=== PATIENT | female | born 1990 | race Caucasian/White ===

== ENCOUNTER 2019-03-13 17:19 | Inpatient (IN) ==
[2019-03-13] MEDS ORDERED: PEPCID PO PRN (17:26)
[2019-03-13] MEDS ORDERED: TYLENOL PO PRN (17:26)
[2019-03-13] MEDS ORDERED: AMBIEN PO PRN (17:26)
[2019-03-13] MEDS ORDERED: ZOFRAN IV PRN (17:26)
[2019-03-13] MEDS ORDERED: BRETHINE SUBQ PRN (17:26)
[2019-03-13] MEDS ORDERED: PEPCID IV PRN (17:26)
[2019-03-13] MEDS ORDERED: REGLAN PO ONE (17:26)
[2019-03-13] MEDS ORDERED: STADOL IV PRN ×3 (17:26)
[2019-03-13] MEDS ORDERED: KEFZOL 1 GM/D5W 1 GM/50 ML IVPB IV PRN (17:26)
[2019-03-13] MEDS ORDERED: PEPCID PO ONE (17:26)
[2019-03-13 18:15] LABS: URINE SOURCE VOIDED
[2019-03-13 18:17] LABS: BASO# 0.02 X1000 (0.0-0.2); BASO% 0.2 % (0.0-0.8); EOS# 0.24 X1000 (0.0-0.7); EOS% 2.3 % (0.0-10.0); HEMATOCRIT 29.5 % (37.0-47.0); HEMOGLOBIN 9.6 g/dL (12.0-16.0); IMM GRAN# 0.02 X1000 (0.0-0.04); IMM GRAN% 0.2 % (0.0-0.5); LYMPH# 3.11 X1000 (1.2-3.4); LYMPH% 30.3 % (20.5-51.1); MCH 25.9 PG (27-31); MCHC 32.5 g/dL (33-37); MCV 79.5 FL (81-99); MONO# 0.88 X1000 (0.11-0.59); MONO% 8.6 % (1.7-9.3); MPV 10.2 FL (7.4-10.4); NEUT# 5.99 X1000 (1.4-6.5); NEUT% 58.4 % (42.2-75.2); PLT 402 X1000 (130-400); RBC 3.71 XMIL (4.2-5.4); RDW 15.3 % (11.5-14.5); WBC 10.26 X1000 (4.8-10.8)
[2019-03-13 18:19] LABS: BILIRUBIN URINE NEGATIVE (NEGATIVE); BLOOD URINE NEGATIVE (NEGATIVE); GLUCOSE URINE NEGATIVE (NEGATIVE); KETONE URINE NEGATIVE (NEGATIVE); LEUKOCYTES URINE TRACE (NEGATIVE); NITRITE URINE NEGATIVE (NEGATIVE); PROTEIN URINE NEGATIVE (NEGATIVE); UROBILINOGEN URINE NORMAL
[2019-03-13 18:20] LABS: CLARITY VERY CLOUDY (CLEAR); COLOR YELLOW
[2019-03-13 18:29] LABS: UR AMPHETAMINES QUAL NONE DETECTED (NONE DETECT); UR BARBITUATES QUAL NONE DETECTED (NONE DETECT); UR BENZODIAZEPIN QUAL NONE DETECTED (NONE DETECT); UR CANNABINOIDS QUAL NONE DETECTED (NONE DETECT); UR COCAINE QUAL NONE DETECTED (NONE DETECT); UR METHADONE QUAL NONE DETECTED (NONE DETECT); UR METHAMPHETAMINE QUAL NONE DETECTED (NONE DETECT); UR OPIATES QUAL NONE DETECTED (NONE DETECT); UR OXYCODONE QUAL NONE DETECTED (NONE DETECT); UR PCP QUAL NONE DETECTED (NONE DETECT); UR PROPOXYPHENE QUAL NONE DETECTED (NONE DETECT); UR TCA QUAL NONE DETECTED (NONE DETECT)
[2019-03-13] MEDS: CYTOTEC PO SCH (20:04)
[2019-03-13] MEDS: LR 1,000 ML IV ONE (20:04)
--- NOTE | 2019-03-13 20:59 | HISTORY AND PHYSICAL ---
HISTORY OF PRESENT ILLNESS: Patient is a 29-year-old white female, G4, P3, at 39 weeks gestation, who is being admitted to Labor and Delivery for cervical ripening with Cytotec, and then Pitocin induction on 03/14/2019. care unremarkable. Group B strep was negative and patient being treated with iron for anemia. PAST MEDICAL HISTORY: Unremarkable. PAST SURGICAL HISTORY: Ear surgery. PAST OB HISTORY: G4, P3, spontaneous vaginal deliveries x3. 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 REVIEW OF SYSTEMS: All systems reviewed and noncontributory. FAMILY HISTORY: Significant for diabetes mellitus and colon cancer. SOCIAL HISTORY: Tobacco use: Half pack per day. Alcohol use: None. MEDICATIONS: vitamins and iron. ALLERGIES: No known drug allergies. PHYSICAL EXAMINATION: VITAL SIGNS: Height 5 feet 11 inches, weight 186 pounds, temperature 97 degrees, blood pressure 112/65, pulse 99, respirations 20. heart rate in the 140s with positive accelerations. HEENT: Pupils equal, round, reactive to light and accommodation. Extraocular movements intact. Oropharynx clear. NECK: Supple. No thyromegaly. LUNGS: Clear to auscultation. HEART: Regular rate and rhythm. ABDOMEN: Gravid, nontender. PELVIC: Cervix was fingertip, thick, and high, posterior. EXTREMITIES: No clubbing, cyanosis, or edema noted. NEUROLOGIC: Cranial nerves 2 through 12 grossly intact. Motor 5/5. Ultrasound was used to confirm a vertex presentation. ASSESSMENT AND PLAN: Intrauterine at 39 weeks, admitted for cervical ripening and then induction of labor. Anticipate vaginal delivery. cc: Gonzalo García III, MD
[2019-03-14] MEDS ORDERED: LR 1,000 ML ONE ×2 (00:01→06:03)
[2019-03-14] MEDS: LR 1,000 ML IV ONE (00:04)
[2019-03-14] MEDS: CYTOTEC PO SCH ×2 (00:05→04:15)
[2019-03-14] MEDS ORDERED: FENTANYL-BUPIV-NS 2 MCG-0.1% 200 ML EPIDURAL PRN (07:05)
[2019-03-14] MEDS ORDERED: NAROPIN 0.2% INJ PRN (07:06)
[2019-03-14] MEDS ORDERED: EPHEDRINE ONE (07:57)
[2019-03-14] MEDS ORDERED: PITOCIN 30 UNITS/NS 30 UNIT/500 ML IV.SOLN IV SCH (08:00)
[2019-03-14] MEDS ORDERED: EPHEDRINE IV PRN (08:00)
[2019-03-14] MEDS: LR 1,000 ML IV SCH ×2 (08:49→08:51)
[2019-03-14] MEDS ORDERED: BICITRA PO ONE (14:14)
[2019-03-14] MEDS ORDERED: NESACAINE-MPF 3% INJ ONE (14:17)
[2019-03-14] MEDS ORDERED: ZOFRAN ONE (14:57)
[2019-03-14] MEDS ORDERED: NAROPIN 0.5% ONE (14:57)
[2019-03-14] MEDS ORDERED: DURAMORPH ONE (15:00)
[2019-03-14] MEDS ORDERED: FENTANYL ONE ×2 (15:00→15:48)
[2019-03-14] MEDS ORDERED: PITOCIN ONE (15:50)
[2019-03-14] MEDS ORDERED: NEO-SYNEPHRINE ONE (15:53)
[2019-03-14] MEDS ORDERED: TORADOL ONE (16:05)
[2019-03-14] MEDS ORDERED: DEMEROL PO PRN ×2 (16:06)
[2019-03-14] MEDS ORDERED: DULCOLAX PR PRN (16:06)
[2019-03-14] MEDS ORDERED: M-M-R II VACCINE SUBQ ONE (16:06)
[2019-03-14] MEDS ORDERED: PITOCIN 20 UNITS/NS 20 UNITS/1,000 ML IV.SOLN IV ONE (16:06)
[2019-03-14] MEDS ORDERED: ATARAX PO PRN (16:06)
[2019-03-14] MEDS ORDERED: DEMEROL IM PRN (16:06)
[2019-03-14] MEDS ORDERED: AMBIEN PO PRN (16:06)
[2019-03-14] MEDS ORDERED: PITOCIN IM PRN (16:06)
[2019-03-14] MEDS ORDERED: HYDROXYZINE IM PRN (16:06)
[2019-03-14] MEDS ORDERED: BOOSTRIX VACCINE IM ONE (16:06)
[2019-03-14] MEDS ORDERED: PERCOCET-5 PO PRN (16:06)
[2019-03-14] MEDS ORDERED: PHENERGAN IM PRN (16:06)
[2019-03-14] MEDS ORDERED: MYLICON PO PRN (16:06)
[2019-03-14] MEDS: MORPHINE IV PRN ×2 (17:12→22:01)
--- NOTE | 2019-03-14 18:10 | OPERATIVE NOTE ---
PROCEDURE DATE: 03/14/2019 PREOPERATIVE DIAGNOSIS: Intrauterine (IUP) at 39 and 1/7 weeks with persistent OP presentation, maternal exhaustion, and non-engaged mid and vertex. Also, patient desires permanent sterilization. POSTOPERATIVE DIAGNOSES: 1. Intrauterine (IUP) at 39 and 1/7 weeks with persistent OP presentation, maternal exhaustion, and non-engaged mid and vertex. Also, patient desires permanent sterilization. 2. With operative delivery of a male , 8 pounds 10 ounces with Apgars of 8 and 9 at 15:08 on 03/14/2019. PROCEDURE PERFORMED: Primary low transverse and bilateral tubal ligation. SURGEON: Dr. García. MANAGER PHYSICAL: ORT. ANESTHESIA: Epidural, Dr. Hendrickson. FINDINGS: Normal-appearing uterus, tubes and ovaries. OP presentation noted at time of delivery. COMPLICATIONS: None. ESTIMATED BLOOD LOSS: 700 mL. SPECIMEN: Removed right and left fallopian tube segments. DRAINS: Bazan to straight drain. COUNTS: All counts were correct x 3. INDICATIONS: Patient is a 29-year-old, white female, G4, P3, at 39 and 1/7 weeks, for labor induction. The patient had Cytotec the night before and had Pitocin, progressed to complete; however, after pushing for a period of time the patient was complaining of pain and exhaustion and check of the presentation, showed OP presentation and that the fetus was not engaged despite the pushing of the mother. Due to these factors, discussed with the patient about moving towards operative delivery. The patient expressed desire for this as well as for tubal ligation. Patient counseled about the risks of surgery including bleeding, infection, bowel or bladder injury. The patient counseled about the permanency of tubal ligation, failure rate of 2 to 01/1000, as well as the availability of reversible alternatives such as IUD, control pills, patches, etc. DETAILS OF PROCEDURE: The patient was taken to the OR. Epidural was re-dosed and adequate anesthesia was noted by using Allis clamps on skin. Then, Allis clamps on skin showed good anesthesia. A Bazan catheter had been placed and there was tinge of hematuria noted after the maternal pushing effort. A Pfannenstiel skin incision was made using a scalpel. This was taken down sharply to the fascia layer. A small villa was made in the rectus fascia. Fascial incision was then extended using curved Cope scissors and then blunt and sharp dissection of the superior and inferior aspects of the rectus fascia was performed. Rectus muscles were then divided in midline. Peritoneal layer was entered bluntly. The peritoneal incision was extended superiorly and inferiorly with care taken to avoid the bladder. Bladder reflection was then dissected using Metzenbaum scissors. Bladder blade was placed at the abdominal cavity and then a transverse incision was made in lower uterine segment using scalpel. Clear fluid was noted upon entry and then elevated the head toward the hysterotomy site where OP presentation was confirmed and then the head was delivered atraumatically with gentle fundal pressure. Bulb suction of nose and mouth and then the rest of the body was delivered atraumatically with gentle fundal pressure. The umbilical cord was clamped twice and cut. Infant handed to nursery nurse in attendance for delivery. Cord blood sample was obtained at this time. Placenta was then manually extracted. Uterus was exteriorized. Wet lap was placed around the uterus to dry. It was then used to curette the uterine cavity, clots and debris. Uterine incision was then closed using 0 chromic in a running, locking fashion x 1 and a small area of extra suture was made on the left corner and this was made hemostatic with several [id number] stitches. Once the uterine incision was inspected and good hemostasis was noted, attention was then turned to the right fallopian tube which was grasped near the isthmus by a Leanne clamp and then electrocautery was used to puncture the mesosalpinx and then 0 plain suture was then used to tie a portion of the fallopian tube. This portion was then excised using Metzenbaum scissors and the electrocautery was then used on the open ends of the fallopian tube. Good hemostasis was noted. The specimen was taken off to be placed in a specimen container. Attention was then turned to the left fallopian tube, which was grasped near the isthmus and then a small hole was made in the mesosalpinx using electrocautery. A portion of the fallopian tube was then ligated using 0 plain suture and then this portion was then excised using Metzenbaum scissors and the left fallopian tube segment was handed off to be placed in a specimen container. The posterior cul-de-sac was then irrigated copiously and then the uterus was then replaced back into the abdominal cavity without difficulty. Pericolic gutters were then cleansed using moist lap sponges. The uterine incision and bladder reflection were inspected and good hemostasis was noted. At this point in time, peritoneal layer was then closed using 2-0 chromic in a running fashion x 1. The rectus muscle was then reapproximated using several interrupted stitches of 2-0 chromic. Fascia layer was then closed using 0 PDS in a running fashion x 1. Subcutaneous layer was then irrigated and electrocautery was used to obtain hemostasis. The skin was reapproximated using esteban. The patient tolerated the procedure well. Was taken to recovery room in stable condition. All counts were correct x 3. cc: Gonzalo García III, MD
[2019-03-14] MEDS: TORADOL IV SCH ×2 (18:54→22:02)
[2019-03-14] MEDS: MYLICON PO SCH ×2 (18:56→22:00)
[2019-03-14] MEDS: PERICOLACE PO SCH (22:00)
[2019-03-14] MEDS: PITOCIN 10 UNITS/NS 1,000 ML IV SCH (23:30)
[2019-03-15] MEDS: MORPHINE IV PRN ×2 (01:35→07:26)
[2019-03-15 07:19] LABS: BASO# 0.05 X1000 (0.0-0.2); BASO% 0.2 % (0.0-0.8); EOS# 0.17 X1000 (0.0-0.7); EOS% 0.8 % (0.0-10.0); HEMATOCRIT 27.3 % (37.0-47.0); HEMOGLOBIN 8.7 g/dL (12.0-16.0); IMM GRAN# 0.05 X1000 (0.0-0.04); IMM GRAN% 0.2 % (0.0-0.5); LYMPH# 3.37 X1000 (1.2-3.4); LYMPH% 15.3 % (20.5-51.1); MCH 25.7 PG (27-31); MCHC 31.9 g/dL (33-37); MCV 80.5 FL (81-99); MONO# 1.86 X1000 (0.11-0.59); MONO% 8.4 % (1.7-9.3); MPV 10.2 FL (7.4-10.4); NEUT# 16.55 X1000 (1.4-6.5); NEUT% 75.1 % (42.2-75.2); PLT 352 X1000 (130-400); RBC 3.39 XMIL (4.2-5.4); RDW 15.6 % (11.5-14.5); WBC 22.05 X1000 (4.8-10.8)
[2019-03-15 07:40] LABS: BASO 1 % (0-1); EOS 1 % (1-10); HYPOCHROM 1+; LYMPHS 11 % (21-51); MICROCYTOSIS 1+; MONO 4 % (1-9); SEGS 83 % (42-75)
[2019-03-15] MEDS: PITOCIN 10 UNITS/NS 1,000 ML IV SCH (07:54)
[2019-03-15] MEDS: TORADOL IV SCH (09:58)
[2019-03-15] MEDS: MYLICON PO SCH ×3 (09:58→17:45)
--- NOTE | 2019-03-15 10:46 | OB/GYN PROGRESS NOTE ---
Progress Note OB - . Patient Problems: Current Active Problems Problem Status Onset Deep transverse arrest, persis occipitopost position, labor and del Acute Anemia complicating Acute OB Progress Note: Vital Signs - 24 hr 03/14/19 13:15 03/14/19 16:00 03/14/19 16:10 Temperature 96.9 F L 96.7 F L Pulse Rate 104 H 96 H 97 H Respiratory Rate 20 16 16 Blood Pressure 101/62 103/61 Blood Pressure [Left Arm] 103/61 100/55 O2 Sat by Pulse Oximetry 99 100 100 03/14/19 16:20 03/14/19 16:30 03/14/19 16:40 Temperature Pulse Rate 96 H 65 76 Respiratory Rate 16 16 16 Blood Pressure Blood Pressure [Left Arm] 105/55 97/57 102/60 O2 Sat by Pulse Oximetry 100 98 100 03/14/19 16:50 03/14/19 17:00 03/14/19 20:30 Temperature 96.7 F L Pulse Rate 71 69 66 Respiratory Rate 16 16 18 Blood Pressure 117/56 112/64 Blood Pressure [Left Arm] 110/55 117/56 O2 Sat by Pulse Oximetry 98 99 99 03/15/19 00:00 03/15/19 04:16 03/15/19 07:48 Temperature 96.5 F L 97.1 F L Pulse Rate 55 L 68 81 Respiratory Rate 18 18 16 Blood Pressure 97/51 106/51 105/58 Blood Pressure [Left Arm] O2 Sat by Pulse Oximetry 98 98 100 03/15/19 09:12 Temperature Pulse Rate 78 Respiratory Rate 18 Blood Pressure Blood Pressure [Left Arm] O2 Sat by Pulse Oximetry Laboratory Results - last 24 hr 03/15/19 06:35 WBC 22.05 H D RBC 3.39 L Hgb 8.7 L Hct 27.3 L MCV 80.5 L MCH 25.7 L MCHC 31.9 L RDW Std Deviation 15.6 H Plt Count 352 MPV 10.2 Immature Gran % (Auto) 0.2 Neut % (Auto) 75.1 Lymph % (Auto) 15.3 L [place] % (Auto) 8.4 Eos % (Auto) 0.8 Baso % (Auto) 0.2 Immature Gran # (Auto) 0.05 H Neut # (Auto) 16.55 H Lymph # (Auto) 3.37 [place] # (Auto) 1.86 H Eos # (Auto) 0.17 Baso # (Auto) 0.05 Segmented Neutrophils 83 H Lymphocytes 11 L Monocytes 4 Eosinophils 1 Basophils 1 Hypochromia 1+ Microcytosis 1+ Doing well POD#1 PLTCS due to labor arrest in second stage with persistent OP. She notes good response to analgesia, particularly Toradol, and denies NVFC, heavy lochia, or breast pain EXAM VSS AF as above HEENT Nl Chest Nl respiratory effort with incentive spirometry CVS RRR Abdomen benign. Fundus u-2, appropriately tender Ext no CCE or tenderness A/P Problems as listed above Postop and care reviewed including ambulation, Bazan removal, av oidance of tobacco, care with showering, iron supplementation, and discharge by 6-14
[2019-03-15] MEDS: PERCOCET-10 PO PRN ×2 (13:44→19:44)
[2019-03-15] MEDS ORDERED: LR 1,000 ML IV SCH (16:06)
[2019-03-15] MEDS: MOTRIN PO PRN (17:45)
[2019-03-15] MEDS: PERICOLACE PO SCH (23:13)
[2019-03-16] MEDS: MOTRIN PO PRN ×3 (02:47→20:17)
[2019-03-16] MEDS: PERCOCET-10 PO PRN ×5 (02:48→20:17)
--- NOTE | 2019-03-16 06:41 | OB/GYN PROGRESS NOTE ---
Progress Note OB - . Patient Problems: Current Active Problems Problem Status Onset Anemia complicating Acute Deep transverse arrest, persis occipitopost position, labor and del Acute OB Progress Note: Vital Signs - 24 hr 03/15/19 07:48 03/15/19 09:12 03/15/19 12:00 Temperature 97.1 F L 96.2 F L Pulse Rate 81 78 72 Respiratory Rate 16 18 20 Blood Pressure 105/58 96/52 O2 Sat by Pulse Oximetry 100 100 03/15/19 15:58 03/15/19 20:00 03/15/19 20:20 Temperature 97.3 F L 97.2 F L Pulse Rate 99 H 98 H 99 H Respiratory Rate 20 18 20 Blood Pressure 102/59 123/55 O2 Sat by Pulse Oximetry 99 03/16/19 00:00 03/16/19 05:34 Temperature 97.7 F 95.5 F L Pulse Rate 73 68 Respiratory Rate 18 14 Blood Pressure 98/53 91/48 O2 Sat by Pulse Oximetry 100 Laboratory Results - last 24 hr 03/15/19 06:35 WBC 22.05 H D RBC 3.39 L Hgb 8.7 L Hct 27.3 L MCV 80.5 L MCH 25.7 L MCHC 31.9 L RDW Std Deviation 15.6 H Plt Count 352 MPV 10.2 Immature Gran % (Auto) 0.2 Neut % (Auto) 75.1 Lymph % (Auto) 15.3 L [place] % (Auto) 8.4 Eos % (Auto) 0.8 Baso % (Auto) 0.2 Immature Gran # (Auto) 0.05 H Neut # (Auto) 16.55 H Lymph # (Auto) 3.37 [place] # (Auto) 1.86 H Eos # (Auto) 0.17 Baso # (Auto) 0.05 Segmented Neutrophils 83 H Lymphocytes 11 L Monocytes 4 Eosinophils 1 Basophils 1 Hypochromia 1+ Microcytosis 1+ No complaints, pain controlled, denies PIH/Orthostatic symptoms. Ambulating A&O NAD CTAB RRR S/ND/appropriate post op discomfort Incision C/D/I without E/E/I No C/C/E POD 2 s/p primary LTCS doing well - ambulate - post op care - anticipate D/C home Wednesday.
[2019-03-16] MEDS: MYLICON PO SCH ×5 (11:39→20:17)
[2019-03-16] MEDS ORDERED: NEOSPORIN OINTMENT PACKET TOP PRN (15:09)
[2019-03-16] MEDS: PERICOLACE PO SCH (20:17)
[2019-03-17] MEDS: PERCOCET-10 PO PRN ×5 (00:47→21:26)
[2019-03-17] MEDS: MOTRIN PO PRN ×3 (07:06→23:33)
[2019-03-17] MEDS: MYLICON PO SCH ×4 (09:13→21:26)
--- NOTE | 2019-03-17 10:02 | OB/GYN PROGRESS NOTE ---
Progress Note OB - . Patient Problems: Current Active Problems Problem Status Onset Anemia complicating Acute Deep transverse arrest, persis occipitopost position, labor and del Acute OB Progress Note: Vital Signs - 24 hr 03/16/19 11:41 03/16/19 16:14 03/16/19 20:15 Temperature 96.9 F L 97.4 F L 98 F Pulse Rate 80 90 80 Respiratory Rate 18 18 18 Blood Pressure 100/55 109/57 111/66 O2 Sat by Pulse Oximetry 99 98 98 03/17/19 00:45 03/17/19 08:40 03/17/19 08:59 Temperature 96.6 F L 97.0 F L Pulse Rate 72 88 85 Respiratory Rate 16 16 16 Blood Pressure 93/52 129/60 O2 Sat by Pulse Oximetry 97 100 29 yo WF doing well on POD#3 following unscheduled PLTCS with arrest of labor and OP position. Her may require further impatient bili light treatment, and she is uncertain she can secure additional care for her three children tonight. Postop ROS is negative but for nontedner and decreasing pedal edema. Exam VSS AF Heent Nl Chest Nl resp effort CVS RRR Abd soft, fundus firm, nontender U-0 Ext nontender; 2+ pedal edema A/P as above POD#3 Discharge today or tomorrow pedning available childcare. I reviewed discharge precautions and limitations and need for assistance with childcare over the next two weeks regardless.
[2019-03-17] MEDS: PERICOLACE PO SCH (21:26)
[2019-03-18 07:51] VITALS: BP 105/54
[2019-03-18] MEDS ORDERED: PNEUMOVAX 23 IM ONE (08:30)
[2019-03-18] MEDS: MOTRIN PO PRN (08:33)
[2019-03-18] MEDS: MYLICON PO SCH (08:33)
[2019-03-18] MEDS: PERCOCET-10 PO PRN (10:41)
--- NOTE | 2019-03-18 11:37 | OB/GYN PROGRESS NOTE ---
Progress Note OB - . Patient Problems: Current Active Problems Problem Status Onset Anemia complicating Acute Deep transverse arrest, persis occipitopost position, labor and del Acute OB Progress Note: Vital Signs - 24 hr 03/17/19 12:40 03/17/19 16:15 03/17/19 19:05 Temperature 97.2 F L 97.2 F L 98 F Pulse Rate 68 79 65 Respiratory Rate 16 16 18 Blood Pressure 99/67 121/62 110/64 O2 Sat by Pulse Oximetry 98 100 96 03/17/19 23:30 03/18/19 07:25 Temperature 97.2 F L 97.4 F L Pulse Rate 67 79 Respiratory Rate 18 18 Blood Pressure 113/62 105/54 O2 Sat by Pulse Oximetry 99 100 Brenda wall doing well POD#4 and her has been released for discharge. Postop and ROS is negative. Exam VSS as above HEENT Nl Chest Nl resp effort CVS RRR Abd soft, fundus firm nontender, and incision c.d.i nontender Ext 2+ pedal edema, nontender A/P as above I reviewed full discharge precautions, limitations, medications, BTL BC, return for staple removal next week as directed by Dr. García, and she verbalized understanding of the issues discussed.
--- NOTE | 2019-03-18 19:33 | DISCHARGE SUMMARY ---
ADMISSION DATE: 03/13/2019 DISCHARGE DATE: 03/18/2019 ADMITTING DIAGNOSIS: Thirty-nine week with desire for elective induction. DISCHARGE DIAGNOSIS: 1. Thirty-nine week , delivered, with obstetric complication. 2. Arrest of labor with persistent occiput posterior. 3. Viable male infant. 4. Desire for permanent sterilization. HOSPITAL PROCEDURES: 1. Primary low transverse section. 2. Bilateral tubal sterilization. DISCHARGE MEDICATIONS: vitamins once daily, ferrous sulfate 325 mg 1 tablet twice daily, ibuprofen 800 mg every 6 hours as needed for pain #40 with 1 refill transmitted to the [facility] pharmacy in [place]; and Percocet 5-325 mg one tab every 6 hours as needed for breakthrough pain for a five-day supply of #20 with no refills, hand-written on a paper prescription pad. HPI: Brenda is now a 29-year-old, 4, para 4-0-0-4 white single female presenting at 39 weeks 1 day gestation for sequential Cytotec and Pitocin induction of labor. Past medical, social, family and histories are summarized on the admitting history and physical exam. SOCIAL HISTORY: Is notable for 1/2 pack per day tobacco use. HOSPITAL COURSE: Brenda responded to ripening and induction and experienced labor arrest in 2nd stage with persistent occiput posterior position requiring primary low transverse section. She experienced no intraoperative or postoperative complications. There is a continued anemia of with admission hemoglobin 9.6 and postoperative 8.7. She displayed normal graduated increases in bowel and bladder habits and ambulation with normal lochia, normal nontender fundus and excellent healing of the incision with staple line intact. DISPOSITION: At this dictation discharge examination is normal. She verbalized good understanding of the discharge precautions, medications, limitations, return for staple removal next week and for final exam in 6 weeks or any time for heavy vaginal bleeding, unrelieved pain, incisional drainage, or bleeding, breast pain or soreness or depressed mood. Her child did require an extra day in nursery for treatment of bilirubin elevation and has now been released by the project economist. cc: MD WICHO Kennedy III
== END 2019-03-18 12:25 | disposition home or self-care (01) | DRG 785 ==
LOC: P.LD 17:19
PROVIDERS: ADMIT Obstetrics & Gynecology; ATTEND Obstetrics & Gynecology
CPT/HCPCS: 80104; 80301; 80305; 81003; 85025; 86592; 90732; 94799; A9270; G0431; G0434; G0477; J0595; J0690; J1885; J2270; J2274; J2275; J2370; J2400; J2405; J2590; J2795; J3010; J7120; Q9974